=== PATIENT | female | born 1935 | race Caucasian/White ===

== ENCOUNTER → 2017-12-01 08:41 | Outpatient (CLI) | payer OTHER | END | disposition home or self-care (01) | LOC: NUCLEAR 08:41 | DX: I87.2 Venous insufficiency (chronic) (peripheral) (principal) ==

== ENCOUNTER 2019-03-13 08:02 | Outpatient (CLI) | payer OTHER | END 2019-03-13 08:04 | disposition home or self-care (01) | LOC: TOM 08:02 | DX: G43.909 Migraine, unspecified, not intractable, without status migrainosus (principal) ==

== ENCOUNTER → 2019-03-22 | Outpatient (CLI) | payer OTHER | END | disposition home or self-care (01) | LOC: RX STUDY 03-20 08:45 → OFIC 805 03-29 08:05 | DX: R10.84 Generalized abdominal pain (principal); K21.9 Gastro-esophageal reflux disease without esophagitis ==

== ENCOUNTER 2019-07-18 07:11 | Outpatient (CLI) | payer OTHER | END 2019-07-18 07:23 | disposition home or self-care (01) | LOC: NUCLEAR 07:11 | DX: I67.89 Other cerebrovascular disease (principal); R09.89 Other specified symptoms and signs involving the circulatory and respiratory systems ==